=== PATIENT | female | born 1980 | race African-American/Black ===

== ENCOUNTER 2016-10-03 15:14 | Emergency (ER) | payer OTHER ==
[~2016-10-03] VITALS: Ht 172.7 cm; Wt 106.5 kg
[~2016-10-03 15:14] MED LIST: CYCLOBENZAPRINE10 MG PO; DICLOFENAC SODI75 MG PO; ENDOCET 5-3251 EACH PO; FLEXERIL10 MG PO; HYDROCODON-ACE1 EAC7 PO; IBUPROFEN800 MG PO; LORCET 5-325 M1 EACH PO; LYRICA50 MG PO; NO HOME MEDS; PEN-VEE K,VEET500 MG PO; PERCOCET 5/31 TABLET PO; ULTRAM50 MG PO; VOLTAREN75 MG PO
[2016-10-03] MEDS ORDERED: PEN-VEE K,VEET500 MG PO (16:14)
[2016-10-03] MEDS ORDERED: NAPROXEN500 MG PO (16:14)
[2016-10-03] MEDS ORDERED: PERCOCET 5/31 TABLET PO (16:18)
[2016-10-03 16:41] VITALS: BP 124/82
== END 2016-10-03 16:41 | disposition home or self-care (01) ==
LOC: EME 15:14 → EXP 15:41
DX: K02.9 Dental caries, unspecified (principal); K04.7 Periapical abscess without sinus; F17.200 Nicotine dependence, unspecified, uncomplicated
CPT/HCPCS: 99281; 99284

== ENCOUNTER 2017-08-26 07:51 | Emergency (ER) | payer OTHER ==
[~2017-08-26] VITALS: Ht 172.7 cm; Wt 95.7 kg
[~2017-08-26 07:51] MED LIST changes: +NAPROXEN500 MG PO
[2017-08-26 08:00] VITALS: BP 114/71
[2017-08-26 08:49] LABS: HEMATOCRIT 42.4 % (36.0-46.0); HEMOGLOBIN 14.3 G/DL (11.9-15.5); MCH 31.8 PG (29.0-34.0); MCHC 33.7 G/DL (30.0-36.0); MCV 94.2 FL (83-99); PLATELET COUNT 349 K/uL (156-360); RBC DIS.WIDTH-CV 12.5 % (11.8-14.6); WHITE BLOOD COUNT 11.6 K/uL (4.1-10.2)
[2017-08-26 09:03] LABS: ALBUMIN 3.9 g/dL (3.2-4.8); CHLORIDE 102 mEq/L (99-109); POTASSIUM 4.2 mEq/L (3.7-5.4); SODIUM 139 mEq/L (136-147)
[2017-08-26 09:05] LABS: GLUCOSE 106 mg/dL (70-99); TOTAL PROTEIN 6.6 g/dL (6.4-8.3)
[2017-08-26 09:07] LABS: TOTAL BILIRUBIN 0.6 mg/dL (0.0-1.0)
[2017-08-26 09:09] LABS: ALKALINE PHOSPHATASE 77 IU/L (3-129); CREATININE 0.7 mg/dL (0.6-1.3); GFR ESTIMATE (CALCULATED) > 59 mL/min/
[2017-08-26 09:10] LABS: AST (GOT) 11 IU/L (2-34); UREA NITROGEN (BUN) 7 mg/dL (9-23)
[2017-08-26 09:12] LABS: ALT (GPT) 12 IU/L (3-49)
== END 2017-08-26 11:15 | disposition left against medical advice (07) ==
LOC: EME 07:51
DX: R11.2 Nausea with vomiting, unspecified (principal); R19.7 Diarrhea, unspecified; R05 Cough; Z53.21 Procedure and treatment not carried out due to patient leaving prior to being seen by health care provider
CPT/HCPCS: 80053; 81003; 84702; 85027